=== PATIENT | male | born 1940 | race Caucasian/White ===

== ENCOUNTER → 2019-09-24 14:30 | Outpatient (BNVA) | payer MEDICARE, SELFPAY | PROVIDERS: Family Provider Family Medicine; PCP Family Medicine; Visit Provider Internal Medicine Cardiovascular Disease | DX: N18.9 Chronic kidney disease, unspecified (principal); R60.9 Edema, unspecified; G47.33 Obstructive sleep apnea (adult) (pediatric); E13.9 Other specified diabetes mellitus without complications; I11.0 Hypertensive heart disease with heart failure; I50.9 Heart failure, unspecified; I65.23 Occlusion and stenosis of bilateral carotid arteries; I48.91 Unspecified atrial fibrillation; Z79.01 Long term (current) use of anticoagulants; R60.0 Localized edema; Z86.711 Personal history of pulmonary embolism; I87.2 Venous insufficiency (chronic) (peripheral); I47.1 Supraventricular tachycardia; F03.90 Unspecified dementia, unspecified severity, without behavioral disturbance, psychotic disturbance, mood disturbance, and anxiety | CPT/HCPCS: 80053; 83036 ==

== ENCOUNTER 2020-01-04 10:50 | Outpatient (CLI) | payer MEDICARE, SELFPAY ==
--- NOTE | 2020-01-04 11:04 | FL_ITS ---
WS: [id number] FL barium swallow [id number] REASON FOR EXAM: OTHER DYSPHAGIA FLUOROSCOPY TIME: 1 minutes FINDINGS: The upper cervical spine was not completely evaluated due to the body habitus of patient. T he esophagus itself showed marked tertiary contractions of the esophagus. No definite obstructing les ions of the distal esophagus were seen. The stomach and duodenum were normal. In the distal esophagus is a prominent Schatzki's ring. FL/FL barium swallow [id number] IMPRESSION: The upper esophagus was incompletely evaluated due to the body habitus the darinel ent. We recommend a return for a modified barium swallow be performed. There is marked tertiary contractions of the esophagus but no masses or filling defects were seen. A prominent Schatzki's ring in the distal esophagus.
== END 2020-01-04 10:51 | disposition home or self-care (01) ==
LOC: RAD 10:57
PROVIDERS: PCP Family Medicine; Visit Provider Specialist
DX: R13.19 Other dysphagia (principal); K22.2 Esophageal obstruction
CPT/HCPCS: 74220

== ENCOUNTER → 2020-03-04 16:05 | Outpatient (BNVA) | payer BC, SELFPAY | PROVIDERS: PCP Family Medicine; Visit Provider Internal Medicine | DX: I48.91 Unspecified atrial fibrillation (principal); I50.9 Heart failure, unspecified; I87.2 Venous insufficiency (chronic) (peripheral); E11.22 Type 2 diabetes mellitus with diabetic chronic kidney disease; I13.0 Hypertensive heart and chronic kidney disease with heart failure and stage 1 through stage 4 chronic kidney disease, or unspecified chronic kidney disease | CPT/HCPCS: 80048; 83036 ==